=== PATIENT | female | born 1955 | race Caucasian/White ===

== ENCOUNTER 2023-08-09 08:01 | Emergency (ER) | payer OTHER, MEDICARE ==
[2023-08-09] MEDS ORDERED: Iopamidol 370 76% 100 ML VIAL ONE (13:44)
== END 2023-08-09 09:39 | disposition home or self-care (01) ==
LOC: CSHERS 08:01
DX: S30.1XXA Contusion of abdominal wall, initial encounter (principal); S80.01XA Contusion of right knee, initial encounter; V29.408A Other motorcycle driver injured in collision with unspecified motor vehicles in traffic accident, initial encounter
CPT/HCPCS: 74177; Q9967